=== PATIENT | female | born 1980 | race Caucasian/White ===

== ENCOUNTER 2016-12-20 17:47 | Emergency (ER) | payer BC ==
[~2016-12-20] VITALS: Ht 162.6 cm; Wt 111.1 kg
--- NOTE | ~2016-12-20 | CR229 ---
[facility] A Service of [facility] & [facility] RADIOLOGY TEXT RESULTS PATIENT: JOHN PAUL ALONSO LOCATION: CFTX : 80 UNIT #: [id number] AGE: [address]: Leroy Hightower SEX: F ORDER DR: [id number] [facility] [address] [place], [place] [address] [id number] E MR#: [id number] Acc #: [id number] NAME: JOHN PAUL ALONSO : 1980 SEX: F STUDY DATE/TIME: 12/20/2016 19:10 UNIT: [facility] ROOM: STUDY DESCRIPTION: CR Shoulder Min 2 View Lt Attending Physician: Leroy Hightower P.A.-C. Ordering Physician: Ed uLther Taylor M.D. Primary Care Physician: No Primary Care Physician MEDICAL IMAGING REPORT This report is preliminary unless electronic signature is present EXAM Left shoulder, three views. HISTORY Shoulder pain for 2 days. No known injury. FINDINGS AP view with internal and external rotation of the shoulder girdle shows satisfactory relationship of the humeral head and glenoid fossa. The joint space is normal. There is no identifiable fracture or dislocation or bony destructive process about the shoulder girdle anatomy. The acromioclavicular joint is normal. There is no radiopaque foreign body in the region. IMPRESSION Normal left shoulder. Dictated by... Della Summers M.D. THIS IS AN ELECTRONICALLY VERIFIED REPORT Della Summers M.D. at 12/21/2016 2:02 PM Ernesto TD: 12/20/2016 22:12 JOB #: [id number] MEDICAL IMAGING REPORT Page 1 of 1 COPY
[~2016-12-20 17:47] MED LIST: FLEXERIL PO; FLEXERIL10 MG PO; FLOMAX0.4 MG PO; GUAIFENESIN400 M1 PO; IBUPROFEN PO; LORTAB 5/500 TA1 TA1 PO; LORTAB 7.5-5001 TAB PO; ORUDIS75 M1 PO; PREDNISONE PO; TYLOX 5/500 CAP1 CAP PO; VICODIN 5/500 T1 TAB PO; ZITHROMAX PO; ZOFRAN PO; ZYRTEC PO
== END 2016-12-20 20:00 | disposition home or self-care (01) ==
LOC: CFTX 17:47 → CED 17:47 → CFTX 19:42
DX: S43.422A Sprain of left rotator cuff capsule, initial encounter (principal); F17.210 Nicotine dependence, cigarettes, uncomplicated; Z88.0 Allergy status to penicillin; Z88.1 Allergy status to other antibiotic agents; Z88.5 Allergy status to narcotic agent; X58.XXXA Exposure to other specified factors, initial encounter; Y92.098 Other place in other non-institutional residence as the place of occurrence of the external cause
CPT/HCPCS: 73030; 99283